=== PATIENT | female | born 1970 | race Caucasian/White ===

== ENCOUNTER → 2021-06-19 | Outpatient (CLI) | payer MEDICAID ==
[~2021-06-19] MED LIST: IBUP200T64 PO
== END | disposition home or self-care (01) ==
LOC: STAR 11:18
PROVIDERS: ATTEND Surgery
DX: Z01.812 Encounter for preprocedural laboratory examination (principal); Z20.822 Contact with and (suspected) exposure to COVID-19; K43.2 Incisional hernia without obstruction or gangrene
CPT/HCPCS: 36415; 87635

== ENCOUNTER 2021-06-25 11:52 | Day surgery (SDC) | payer MEDICAID ==
[~2021-06-25] VITALS: Ht 160 cm; Wt 81.2 kg
[2021-06-25 12:05] VITALS: BP 118/77
== END 2021-06-25 16:00 | disposition home or self-care (01) ==
LOC: OUT 11:52
PROVIDERS: ATTEND Surgery
DX: K43.6 Other and unspecified ventral hernia with obstruction, without gangrene (principal); Z79.1 Long term (current) use of non-steroidal anti-inflammatories (NSAID); Z88.0 Allergy status to penicillin; Z88.8 Allergy status to other drugs, medicaments and biological substances
CPT/HCPCS: 49561; 49568; 81025; C1781; J0171; J1885; J2250; J3010; J7120